=== PATIENT | male | born 1970 | race Caucasian/White ===

== ENCOUNTER 2018-07-03 11:44 | Emergency (ER) | payer SELFPAY ==
[~2018-07-03] VITALS: Ht 182.9 cm; Wt 90.9 kg
[2018-07-03 11:48] VITALS: Ht 182.9 cm; Wt 90.9 kg
[2018-07-03] MEDS ORDERED: KLONOPIN1 MG PO (11:49)
[2018-07-03] MEDS ORDERED: BUPROPION HCL200 M1 PO (11:50)
[2018-07-03] MEDS ORDERED: TRAZODONE HCL150 MG (11:50)
[2018-07-03 12:15] LABS: BASOPHILS 0.9 % (0-2); EOSINOPHILS 1.7 % (0-7); HEMOGLOBIN 16.5 g/dL (13.5-17.5); IMMATURE GRANULOCYTES 0.1 % (0-5); LYMPHOCYTES 33.5 % (15-50); MCHC 35.9 g/dL (31.0-37.0); MCV 83.6 fL (80.0-100.0); MONOCYTES 5.3 % (2-11); NEUTROPHILS 58.5 % (40-80); PLATELET COUNT 294 10x3/uL (130-400); RDW 13.2 % (11.5-14.5)
[2018-07-03 12:15] LABS: APPEARANCE CLEAR (CLEAR); BILIRUBIN NEGATIVE (NEGATIVE); COLOR YELLOW (YELLOW); GLUCOSE NEGATIVE (NEGATIVE); KETONE NEGATIVE (NEGATIVE); NITRITE NEGATIVE (NEGATIVE); PROTEIN NEGATIVE (NEGATIVE); SPECIFIC GRAVITY 1.015 (1.005-1.020); UROBILINOGEN NORMAL (NORMAL)
[2018-07-03 12:18] LABS: UDS - AMPHET NEGATIVE QUAL (NEGATIVE); UDS - BARB NEGATIVE QUAL (NEGATIVE); UDS - BENZO POSITIVE QUAL (NEGATIVE); UDS - COCAINE NEGATIVE QUAL (NEGATIVE); UDS - OPIATE NEGATIVE QUAL (NEGATIVE); UDS - PCP NEGATIVE QUAL (NEGATIVE); UDS - THC NEGATIVE QUAL (NEGATIVE)
[2018-07-03 12:31] LABS: ALBUMIN 3.7 g/dL (3.4-5.0); ANION GAP 15.2 mmol/L (8-16); BILIRUBIN - TOTAL 0.64 mg/dL (0.2-1.3); CALCIUM 8.9 mg/dL (8.5-10.1); CARBON DIOXIDE 20.4 mmol/L (21.0-32.0); CREATININE - SERUM 1.3 mg/dL (0.6-1.3); POTASSIUM - SERUM 3.6 mmol/L (3.5-5.1); PROTEIN - SERUM 7.7 g/dL (6.4-8.2)
[2018-07-03 21:06] VITALS: BP 122/69
== END 2018-07-03 21:07 ==
LOC: D.ER 11:44
PROVIDERS: Family Medicine
DX: R45.851 Suicidal ideations (principal); F32.9 Major depressive disorder, single episode, unspecified